=== PATIENT | male | born 1985 | race African-American/Black ===

== ENCOUNTER 2021-06-09 10:30 | Inpatient (IN) | payer MEDICAID ==
[~2021-06-09] VITALS: Ht 182.9 cm; Wt 93.6 kg
[2021-06-09] MEDS ORDERED: LEVETIRACETAM 1000MG PREMIX 100 ML IV ONE ×2 (11:00→12:45)
[2021-06-09] MEDS ORDERED: PROPOFOL 10MG/ML 100ML 100 ML IV ONE (11:30)
[2021-06-09] MEDS ORDERED: LORAZEPAM 2MG/ML CPJ IV ONE (11:30)
[2021-06-09] MEDS ORDERED: PROPOFOL 200MG/20ML VIAL IV ONE (11:30)
[2021-06-09] MEDS ORDERED: FENTANYL CITRATE/PF 50MCG/ML 2ML VIAL IV ONE (11:30)
[2021-06-09] MEDS ORDERED: NOREPINEPHRINE 8MG/250ML PMX 250 ML IV STA (11:45)
[2021-06-09] MEDS ORDERED: MIDAZOLAM HCL 100 MG in DEXT 5% WATER 80 ML IV ONE (12:00)
[2021-06-09] MEDS ORDERED: MIDAZOLAM 100MG/100ML PMX 100 ML IV SCH (12:15)
[2021-06-09 12:32] LABS: CLARITY URINE CLEAR (CLEAR); COLOR URINE YELLOW (YELLOW); KETONES URINE NEGATIVE (NEGATIVE); LEUKOCYTE ESTERASE URINE NEGATIVE (NEGATIVE); NITRITE URINE NEGATIVE (NEGATIVE); OCCULT BLOOD URINE 2+ (NEGATIVE); PH URINE 5.5 (4.5-8.0); PROTEIN URINE TRACE (NEGATIVE); SPECIFIC GRAVITY URINE 1.011 (1.005-1.030); UROBILINOGEN URINE 0.2 E.U./dL (0.2-1.0)
[2021-06-09 12:45] LABS: *AMPHETAMINES SCREEN URINE NEGATIVE (NEGATIVE); *BARBITURATES SCREEN URINE NEGATIVE (NEGATIVE); *BENZODIAZEPINES SCREEN URINE PRESUMTIVE POSITIVE (NEGATIVE)
[2021-06-09 12:46] LABS: *COCAINE SCREEN URINE NEGATIVE (NEGATIVE); METHADONE URINE SCREEN NEGATIVE (NEGATIVE); OPIATES URINE SCREEN NEGATIVE (NEGATIVE); PHENCYCLIDINE URINE SCREEN NEGATIVE (NEGATIVE)
[2021-06-09 12:47] LABS: CANNABINOID URINE SCREEN PRESUMTIVE POSITIVE (NEGATIVE)
[2021-06-09 13:20] LABS: BASOPHILS % 0.2 % (0.0-2.0); EOSINOPHILS % 0.2 % (0.0-5.0); HEMATOCRIT. 45.2 % (42.0-52.0); LYMPHOCYTES % 11.9 % (20.0-50.0); MEAN CORPUSCULAR VOLUME 84.3 fL (80.0-94.0); MEAN PLATELET VOLUME 8.3 fl (7.4-10.4); MONOCYTES % 6.1 % (2.0-8.0); NEUTROPHILS % 81.6 % (40.0-76.0); PLATELET 213 x1000/uL (130-400); RED BLOOD CELL COUNT 5.37 mill/uL (4.7-6.1); RED CELL DISTRIBUTION WIDTH 13.6 % (11.6-14.6)
[2021-06-09] MEDS ORDERED: MORPHINE SULFATE 4 MG/ML CPJ (NOT FOR IM USE) IV ONE (13:45)
[2021-06-09] MEDS ORDERED: LEVETIRACETAM 500 MG in SODIUM CHLORIDE 0.9% 100 ML IV SCH (13:45)
[2021-06-09] MEDS ORDERED: MIDAZOLAM HCL 100 MG in SODIUM CHLORIDE 0.9% 80 ML IV PRN (13:45)
[2021-06-09] MEDS ORDERED: ONDANSETRON HCL 4MG/2ML INJ IV PRN (13:45)
[2021-06-09] MEDS ORDERED: ACETAMINOPHEN 325MG TABLET PO PRN (13:45)
[2021-06-09] MEDS ORDERED: PIPERACILLIN/TAZ 3.375G PREMIX 50 ML IV NR (14:00)
[2021-06-09 14:18] LABS: BG CARBOXYHEMOGLOBIN 0.3 % (0.5-1.5); BG DEOXYHEMOGLOBIN 0.5 % (0.0-5.0); BG HCO3 ACT 16.5 mmol/L (22.0-26.0); BG METHEMOGLOBIN 0.4 % (0.0-1.5); BG OXYGEN SATURATION 99.5 % (92.0-98.5); BG OXYHEMOGLOBIN 98.8 % (94.0-97.0); BG PCO2 34.7 mmHg (35.0-45.0); BG PH 7.295 (7.350-7.450); BG SAMPLE SITE RIGHT BRACHIAL; BG TOTAL HEMOGLOBIN 14.8 g/dL (12.0-18.0); BG VENT MODE VENT - AC
[2021-06-09] MEDS: PROPOFOL 10MG/ML 100ML 100 ML IV PRN ×2 (16:02→21:32)
[2021-06-09 16:07] LABS: CHLORIDE 110 mEq/L (98-107)
[2021-06-09 16:11] LABS: ETHANOL BLOOD < 10 mg/dL
[2021-06-09] MEDS: PANTOPRAZOLE SODIUM 40 MG/VIAL IV SCH (18:12)
[2021-06-09] MEDS: MIDODRINE HCL 5MG TABLET PO SCH (19:01)
[2021-06-09] MEDS: IPRATROPIUM/ALBUTEROL 0.5-3(2.5)MG/3ML NEB HHN SCH (19:49)
[2021-06-09] MEDS ORDERED: PHENYTOIN SODIUM 100MG/2ML VIAL IV SCH (20:15)
[2021-06-09] MEDS ORDERED: LEVETIRACETAM 1000MG PREMIX 100 ML IV SCH (21:00)
[2021-06-09] MEDS ORDERED: LEVETIRACETAM 500MG PREMIX 100 ML IV SCH (21:00)
[2021-06-09] MEDS ORDERED: MIDAZOLAM 100MG/100ML PMX 100 ML IV PRN (21:45)
[2021-06-09] MEDS: PIPERACILLIN/TAZOBACTAM 3.375 G in DEXTROSE 5% WATER 50 ML IV SCH (23:42)
[2021-06-10] VITALS (31 sets, daily range): BP systolic 96–153; BP diastolic 47–107
[2021-06-10] MEDS: IPRATROPIUM/ALBUTEROL 0.5-3(2.5)MG/3ML NEB HHN SCH ×4 (00:45→20:17)
[2021-06-10] MEDS: PROPOFOL 10MG/ML 100ML 100 ML IV PRN (05:23)
[2021-06-10] MEDS: PIPERACILLIN/TAZOBACTAM 3.375 G in DEXTROSE 5% WATER 50 ML IV SCH ×3 (06:50→22:46)
[2021-06-10] MEDS: MIDODRINE HCL 5MG TABLET PO SCH ×3 (09:00→17:00)
[2021-06-10 09:52] LABS: BG BASE EXCESS -0.9 mmol/L (-2.0-2.0); BG DEOXYHEMOGLOBIN 0.8 % (0.0-5.0); BG FRACTION INSPIRED OXYGEN 40; BG HCO3 ACT 20.6 mmol/L (22.0-26.0); BG METHEMOGLOBIN 0.2 % (0.0-1.5); BG OXYGEN SATURATION 99.2 % (92.0-98.5); BG PCO2 26.8 mmHg (35.0-45.0); BG PH 7.504 (7.350-7.450); BG PO2 171.3 mmHg (75.0-100.0); BG SAMPLE SITE RIGHT RADIAL; BG TOTAL HEMOGLOBIN 15.3 g/dL (12.0-18.0); BG VENT MODE VENT - AC
[2021-06-10 10:20] LABS: BASOPHILS % 0.3 % (0.0-2.0); EOSINOPHILS % 0.1 % (0.0-5.0); HEMATOCRIT. 45.2 % (42.0-52.0); HEMOGLOBIN. 15.7 g/dL (14.0-18.0); LYMPHOCYTES % 14.1 % (20.0-50.0); MEAN CORPUSCULAR VOLUME 83.5 fL (80.0-94.0); MEAN PLATELET VOLUME 8.7 fl (7.4-10.4); MONOCYTES % 7.6 % (2.0-8.0); NEUTROPHILS % 77.9 % (40.0-76.0); PLATELET 221 x1000/uL (130-400); RED BLOOD CELL COUNT 5.41 mill/uL (4.7-6.1); RED CELL DISTRIBUTION WIDTH 13.6 % (11.6-14.6)
[2021-06-10 10:34] LABS: CHLORIDE 107 mEq/L (98-107)
[2021-06-10] MEDS: PANTOPRAZOLE SODIUM 40 MG/VIAL IV SCH (10:38)
[2021-06-10] MEDS: LEVETIRACETAM 1,000 MG in SODIUM CHLORIDE 0.9% 100 ML IV SCH ×2 (10:39→21:05)
[2021-06-10] MEDS ORDERED: POTASSIUM CHLORIDE 20MEQ/PACKET PO SCH (12:30)
[2021-06-10] MEDS: LORAZEPAM 2MG/ML CPJ IV PRN (17:22)
[2021-06-10] MEDS ORDERED: HALOPERIDOL LACTATE 5MG/ML VIAL IM PRN (18:45)
[2021-06-10] MEDS: PHENYTOIN SODIUM 100MG/2ML VIAL IV SCH (21:05)
[2021-06-11] VITALS (22 sets, daily range): BP systolic 113–158; BP diastolic 50–97
[2021-06-11] MEDS: LORAZEPAM 2MG/ML CPJ IV PRN (00:30)
[2021-06-11] MEDS: IPRATROPIUM/ALBUTEROL 0.5-3(2.5)MG/3ML NEB HHN SCH ×3 (02:07→14:05)
[2021-06-11] MEDS: PIPERACILLIN/TAZOBACTAM 3.375 G in DEXTROSE 5% WATER 50 ML IV SCH ×2 (05:27→13:32)
[2021-06-11] MEDS: PHENYTOIN SODIUM 100MG/2ML VIAL IV SCH ×2 (05:28→13:32)
[2021-06-11 06:12] LABS: BASOPHILS % 0.3 % (0.0-2.0); EOSINOPHILS % 0.3 % (0.0-5.0); HEMATOCRIT. 42.8 % (42.0-52.0); HEMOGLOBIN. 14.3 g/dL (14.0-18.0); LYMPHOCYTES % 14.3 % (20.0-50.0); MEAN CORPUSCULAR HEMOGLOBIN 27.8 pg (28.0-32.0); MEAN CORPUSCULAR VOLUME 82.9 fL (80.0-94.0); MEAN PLATELET VOLUME 8.4 fl (7.4-10.4); MONOCYTES % 9.4 % (2.0-8.0); NEUTROPHILS % 75.7 % (40.0-76.0); PLATELET 198 x1000/uL (130-400); RED BLOOD CELL COUNT 5.17 mill/uL (4.7-6.1); RED CELL DISTRIBUTION WIDTH 13.7 % (11.6-14.6)
[2021-06-11 06:50] LABS: CHLORIDE 108 mEq/L (98-107)
[2021-06-11] MEDS: PANTOPRAZOLE SODIUM 40 MG/VIAL IV SCH (08:10)
[2021-06-11] MEDS: MIDODRINE HCL 5MG TABLET PO SCH ×2 (09:00→13:31)
[2021-06-11] MEDS: LEVETIRACETAM 1,000 MG in SODIUM CHLORIDE 0.9% 100 ML IV SCH (11:16)
[2021-06-11] MEDS ORDERED: LEVE750T4 MT (14:28)
[2021-06-12] MEDS ORDERED: FAMOTIDINE 20MG/2ML VIAL IV SCH (09:00)
== END 2021-06-11 17:40 | disposition home or self-care (01) | DRG 53 ==
LOC: ER 10:42 → MICUSO 13:10 → UNDOADMIN 06-10 06:14 → MICUSO 06-10 09:15 → CVICU 06-10 09:15 → 5EST 06-11 08:52 → UNDODISIN 06-11 17:40
PROVIDERS: ADMIT Internal Medicine Pulmonary Disease; ATTEND Internal Medicine Pulmonary Disease
PROC: 5A1945Z Respiratory Ventilation, 24-96 Consecutive Hours (ICD-10-PCS; principal; 2021-06-10)
PROC: 0BH17EZ Insertion of Endotracheal Airway into Trachea, Via Natural or Artificial Opening (ICD-10-PCS; 2021-06-10)
PROC: 4A10X4Z Monitoring of Central Nervous Electrical Activity, External Approach (ICD-10-PCS; 2021-06-11)
DX: G40.401 Other generalized epilepsy and epileptic syndromes, not intractable, with status epilepticus (principal); J96.00 Acute respiratory failure, unspecified whether with hypoxia or hypercapnia; G93.89 Other specified disorders of brain; D72.829 Elevated white blood cell count, unspecified; F12.90 Cannabis use, unspecified, uncomplicated; Z91.14 Patient's other noncompliance with medication regimen
CPT/HCPCS: 36415; 36600; 71045; 80048; 80053; 80305; 80320; 81003; 82375; 82805; 82962; 85025; 87070; 92610; 93005; 94002; 94003; 94640; 95816; 97162; 97166; 97535; 99291; C9113; J1165; J1630; J1953; J2060; J2250; J2270; J2543; J2704; J7050; J7060; G0480

== ENCOUNTER 2021-07-06 16:52 | Emergency (ER) | payer MEDICAID ==
[~2021-07-06] VITALS: Ht 177.8 cm; Wt 77.0 kg
[~2021-07-06 16:52] MED LIST: LEVE750T4 MT
[2021-07-06 17:15] VITALS: BP 96/64
[2021-07-06] MEDS ORDERED: LEVETIRACETAM 500MG TABLET PO ONE (17:30)
[2021-07-06] MEDS ORDERED: LORAZEPAM 0.5MG TABLET PO ONE (17:45)
[2021-07-06] MEDS ORDERED: DIPHENHYDRAMINE 50MG/ML VIAL IM ONE (17:45)
== END 2021-07-06 19:11 | disposition home or self-care (01) ==
LOC: ER 16:52
DX: G40.909 Epilepsy, unspecified, not intractable, without status epilepticus (principal); G24.01 Drug induced subacute dyskinesia; Z87.820 Personal history of traumatic brain injury
CPT/HCPCS: 99283

== ENCOUNTER 2023-05-16 20:05 | Inpatient (IN) | payer MEDICAID, OTHER ==
[~2023-05-16] VITALS: Ht 177.8 cm; Wt 93.4 kg
[2023-05-16] MEDS ORDERED: LEVETIRACETAM 500MG PREMIX 100 ML IV ONE ×2 (20:30)
[2023-05-16] MEDS ORDERED: LORAZEPAM 2MG/ML CPJ IV PRN (20:45)
[2023-05-16] MEDS ORDERED: SODIUM CHLORIDE 0.9% 1,000 ML IV ONE ×2 (20:45→22:45)
[2023-05-16 21:11] LABS: BG BASE EXCESS -23.7 mmol/L (-2.0-2.0); BG CARBOXYHEMOGLOBIN 0.1 % (0.5-1.5); BG DEOXYHEMOGLOBIN 0.7 % (0.0-5.0); BG FRACTION INSPIRED OXYGEN 100; BG METHEMOGLOBIN 0.7 % (0.0-1.5); BG OXYGEN SATURATION 99.3 % (92.0-98.5); BG OXYHEMOGLOBIN 98.5 % (94.0-97.0); BG PCO2 45.5 mmHg (35.0-45.0); BG PH 6.916 (7.350-7.450); BG SAMPLE SITE LEFT RADIAL; BG TOTAL HEMOGLOBIN 15.9 g/dL (12.0-18.0); BG VENT MODE MASK - NRB
[2023-05-16 21:27] LABS: HEMATOCRIT. 47.8 % (42.0-52.0); MEAN CORPUSCULAR HEMOGLOBIN 27.6 pg (28.0-32.0); MEAN CORPUSCULAR HGB CONC 31.5 g/dL (31.0-37.0); MEAN CORPUSCULAR VOLUME 87.8 fL (80.0-94.0); MEAN PLATELET VOLUME 9.2 fl (7.4-10.4); PLATELET 314 x1000/uL (130-400); RED BLOOD CELL COUNT 5.44 mill/uL (4.7-6.1); RED CELL DISTRIBUTION WIDTH 14.5 % (11.6-14.6); WHITE BLOOD COUNT 15.5 x1000/uL (4.5-11.0)
[2023-05-16 21:31] LABS: DIFFERENTIAL COMMENT 1
[2023-05-16 21:41] LABS: *AMPHETAMINES SCREEN URINE NEGATIVE (NEGATIVE); *BARBITURATES SCREEN URINE NEGATIVE (NEGATIVE); *BENZODIAZEPINES SCREEN URINE PRESUMPTIVE POSITIVE (NEGATIVE); *COCAINE SCREEN URINE NEGATIVE (NEGATIVE); CANNABINOID URINE SCREEN PRESUMPTIVE POSITIVE (NEGATIVE); ECSTASY MDMA SCREEN URINE NEGATIVE (NEGATIVE); METHADONE URINE SCREEN Neg (NEGATIVE); OPIATES URINE SCREEN NEGATIVE (NEGATIVE); PHENCYCLIDINE URINE SCREEN NEGATIVE (NEGATIVE)
[2023-05-16 21:44] LABS: CLARITY URINE CLEAR (CLEAR); COLOR URINE YELLOW (YELLOW); PLATELET ESTIMATE NORMAL
[2023-05-16 21:45] LABS: GLUCOSE URINE NEGATIVE (NEGATIVE); KETONES URINE NEGATIVE (NEGATIVE); LEUKOCYTE ESTERASE URINE NEGATIVE (NEGATIVE); NITRITE URINE NEGATIVE (NEGATIVE); OCCULT BLOOD URINE 3+ (NEGATIVE); PROTEIN URINE 2+ (NEGATIVE); SPECIFIC GRAVITY URINE >=1.030 (1.005-1.030); UROBILINOGEN URINE 0.2 E.U./dL (0.2-1.0)
[2023-05-16 21:47] LABS: ALANINE AMINOTRANSFERASE 27 IU/L (10-49); ALBUMIN 5.1 g/dL (3.2-4.8); ASPARTATE AMINOTRANSFERASE 32 IU/L (<34); BILIRUBIN TOTAL 0.3 mg/dL (0.1-1.0); CALCIUM 10.3 mg/dL (8.7-10.4); CHLORIDE 101 mEq/L (98-107); CREATINE KINASE 568 IU/L (46-171); CREATININE 1.8 mg/dL (0.6-1.3); GLUCOSE 143 mg/dL (70-105); POTASSIUM 4.2 mEq/L (3.5-5.1); PROTEIN TOTAL 8.8 g/dL (6.0-8.3); SODIUM 140 mEq/L (136-145); UREA NITROGEN BLOOD 12 mg/dL (9-23)
[2023-05-16 21:49] LABS: BACTERIA URINE 1+; RBC URINE 15-25 /hpf (0-2); SQUAMOUS EPITHELIAL CELL URINE FEW /lpf (RARE/1+); WBC URINE 0-2 /hpf (0-2)
[2023-05-16] MEDS ORDERED: LORAZEPAM 4MG/ML VIAL IV NR (22:00)
[2023-05-16 22:30] LABS: ETHANOL BLOOD < 10 mg/dL (<10)
[2023-05-16 22:33] LABS: CARBON DIOXIDE < 10 mEq/L (21-32)
[2023-05-17] VITALS (8 sets, daily range): BP systolic 112–133; BP diastolic 56–73; PULSE 48–96; RESP 14–20; TEMP 95.5–101.4
[2023-05-17] MEDS ORDERED: PIPERACILLIN/TAZ 3.375G PREMIX 50 ML IV SCH (02:15)
[2023-05-17] MEDS: DEXT 5%/0.45% NACL KCL 20MEQ/L 1,000 ML IV SCH ×3 (02:15→16:54)
[2023-05-17] MEDS ORDERED: ACETAMINOPHEN 650MG SUPP PR PRN ×2 (02:15→17:00)
[2023-05-17] MEDS ORDERED: LORAZEPAM 4MG/ML VIAL IV PRN ×2 (02:15→13:15)
[2023-05-17 04:04] LABS: ALANINE AMINOTRANSFERASE 26 IU/L (10-49); ALBUMIN 4.2 g/dL (3.2-4.8); ASPARTATE AMINOTRANSFERASE 46 IU/L (<34); BILIRUBIN TOTAL 0.3 mg/dL (0.1-1.0); CALCIUM 9.2 mg/dL (8.7-10.4); CARBON DIOXIDE 24 mEq/L (21-32); CHLORIDE 107 mEq/L (98-107); CREATININE 1.9 mg/dL (0.6-1.3); GLUCOSE 110 mg/dL (70-105); PROTEIN TOTAL 6.7 g/dL (6.0-8.3); SODIUM 140 mEq/L (136-145); UREA NITROGEN BLOOD 10 mg/dL (9-23)
[2023-05-17 04:21] LABS: HEMATOCRIT. 40.4 % (42.0-52.0); HEMOGLOBIN. 13.3 g/dL (14.0-18.0); MEAN CORPUSCULAR HEMOGLOBIN 27.6 pg (28.0-32.0); MEAN CORPUSCULAR HGB CONC 32.9 g/dL (31.0-37.0); MEAN PLATELET VOLUME 8.8 fl (7.4-10.4); PLATELET 209 x1000/uL (130-400); RED BLOOD CELL COUNT 4.81 mill/uL (4.7-6.1); RED CELL DISTRIBUTION WIDTH 13.9 % (11.6-14.6); WHITE BLOOD COUNT 13.8 x1000/uL (4.5-11.0)
[2023-05-17 04:54] LABS: DIFFERENTIAL COMMENT 1
[2023-05-17] MEDS: PIPERACILLIN/TAZOBACTAM 3.375G in DEXT 5% WATER 50ML IV SCH ×3 (05:17→22:19)
[2023-05-17] MEDS: ONDANSETRON HCL 4MG/2ML INJ IV PRN (05:37)
[2023-05-17] MEDS: PANTOPRAZOLE SODIUM 40 MG/VIAL IV SCH (08:28)
[2023-05-17] MEDS ORDERED: LEVETIRACETAM 500MG PREMIX 100 ML IV SCH ×2 (09:00→21:00)
[2023-05-17] MEDS: ENOXAPARIN 30MG/0.3ML SYR SUBCUT SCH (10:09)
[2023-05-17] MEDS ORDERED: PHENYTOIN SODIUM 100MG/2ML VIAL IV ONE (14:00)
[2023-05-17] MEDS ORDERED: PHENYTOIN SODIUM 500MG in SODIUM CHLORIDE 0.9% 50ML IV NR (14:30)
[2023-05-17 18:22] LABS: PLATELET ESTIMATE NORMAL
[2023-05-17] MEDS: PHENYTOIN SODIUM 100MG/2ML VIAL IV SCH (22:20)
[2023-05-18] VITALS (22 sets, daily range): BP systolic 102–158; BP diastolic 63–92; PULSE 41–71; RESP 13–22; TEMP 98.1–100.2
[2023-05-18] MEDS: DEXT 5%/0.45% NACL KCL 20MEQ/L 1,000 ML IV SCH (02:05)
[2023-05-18] MEDS: LORAZEPAM 4MG/ML VIAL IV PRN ×4 (02:11→20:55)
[2023-05-18 06:09] LABS: CALCIUM 8.6 mg/dL (8.7-10.4); POTASSIUM 4.4 mEq/L (3.5-5.1)
[2023-05-18 06:18] LABS: AMMONIA 49 uMol/L (<32)
[2023-05-18 06:29] LABS: CREATININE 4.6 mg/dL (0.6-1.3)
[2023-05-18] MEDS: PIPERACILLIN/TAZOBACTAM 3.375G in DEXT 5% WATER 50ML IV SCH ×2 (06:40→21:58)
[2023-05-18] MEDS: PHENYTOIN SODIUM 100MG/2ML VIAL IV SCH ×3 (06:46→21:58)
[2023-05-18 08:01] LABS: HEMATOCRIT 36.8 % (42.0-52.0); HEMOGLOBIN 11.9 g/dL (14.0-18.0); MEAN CORPUSCULAR HEMOGLOBIN 27.4 pg (28.0-32.0); MEAN CORPUSCULAR HGB CONC 32.3 g/dL (31.0-37.0); MEAN CORPUSCULAR VOLUME 84.7 fL (80.0-94.0); PLATELET 184 x1000/uL (130-400); RED BLOOD CELL COUNT 4.35 mill/uL (4.7-6.1); RED CELL DISTRIBUTION WIDTH 14.2 % (11.6-14.6); WHITE BLOOD COUNT 12.8 x1000/uL (4.5-11.0)
[2023-05-18] MEDS: PANTOPRAZOLE SODIUM 40 MG/VIAL IV SCH (08:28)
[2023-05-18] MEDS: ENOXAPARIN 30MG/0.3ML SYR SUBCUT SCH (08:29)
[2023-05-18] MEDS: LEVETIRACETAM 1,000 MG in SODIUM CHLORIDE 0.9% 100 ML IV SCH ×2 (09:48→21:58)
[2023-05-18 11:37] LABS: CREATINE KINASE 11034 IU/L (46-171)
[2023-05-18] MEDS: DEXT 5%/0.45% NACL 1000ML 1,000 ML IV SCH ×2 (12:22→22:41)
[2023-05-18] MEDS: ONDANSETRON HCL 4MG/2ML INJ IV PRN (20:55)
[2023-05-19] VITALS (22 sets, daily range): BP systolic 101–157; BP diastolic 72–129; PULSE 41–73; RESP 10–25; TEMP 97.6–99.7
[2023-05-19] MEDS: LORAZEPAM 4MG/ML VIAL IV PRN (02:47)
[2023-05-19] MEDS: PHENYTOIN SODIUM 100MG/2ML VIAL IV SCH ×3 (05:23→22:00)
[2023-05-19] MEDS: DEXT 5%/0.45% NACL 1000ML 1,000 ML IV SCH ×2 (06:09→12:54)
[2023-05-19 06:17] LABS: BASOPHILS % 0.5 % (0.0-2.0); EOSINOPHILS % 0.1 % (0.0-5.0); HEMATOCRIT. 36.3 % (42.0-52.0); LYMPHOCYTES % 25.2 % (20.0-50.0); MEAN CORPUSCULAR HEMOGLOBIN 27.8 pg (28.0-32.0); MEAN CORPUSCULAR HGB CONC 32.9 g/dL (31.0-37.0); MEAN CORPUSCULAR VOLUME 84.5 fL (80.0-94.0); MEAN PLATELET VOLUME 8.9 fl (7.4-10.4); MONOCYTES % 10.6 % (2.0-8.0); NEUTROPHILS % 63.6 % (40.0-76.0); PLATELET 176 x1000/uL (130-400); RED BLOOD CELL COUNT 4.29 mill/uL (4.7-6.1); WHITE BLOOD COUNT 10.3 x1000/uL (4.5-11.0)
[2023-05-19 07:05] LABS: CALCIUM 8.5 mg/dL (8.7-10.4); CARBON DIOXIDE 26 mEq/L (21-32); CHLORIDE 110 mEq/L (98-107); CREATININE 4.1 mg/dL (0.6-1.3); GLUCOSE 112 mg/dL (70-105); PHOSPHORUS 3.2 mg/dL (2.5-4.9); POTASSIUM 4.6 mEq/L (3.5-5.1); SODIUM 142 mEq/L (136-145); UREA NITROGEN BLOOD 22 mg/dL (9-23)
[2023-05-19 07:24] LABS: CREATINE KINASE 21576 IU/L (46-171)
[2023-05-19] MEDS: PIPERACILLIN/TAZOBACTAM 3.375G in DEXT 5% WATER 50ML IV SCH (08:20)
[2023-05-19] MEDS: PANTOPRAZOLE SODIUM 40 MG/VIAL IV SCH (08:20)
[2023-05-19] MEDS: ENOXAPARIN 40MG/0.4ML SYR SUBCUT SCH (08:20)
[2023-05-19] MEDS: LEVETIRACETAM 1,000 MG in SODIUM CHLORIDE 0.9% 100 ML IV SCH (10:14)
[2023-05-20] VITALS: BP 139/82; PULSE 48; RESP 20; TEMP 99
[2023-05-20] MEDS: DEXT 5%/0.45% NACL 1000ML 1,000 ML IV SCH ×3 (00:01→11:38)
[2023-05-20] MEDS: PIPERACILLIN/TAZOBACTAM 3.375G in DEXT 5% WATER 50ML IV SCH ×3 (00:02→20:51)
[2023-05-20] MEDS: LEVETIRACETAM 1,000 MG in SODIUM CHLORIDE 0.9% 100 ML IV SCH ×2 (00:02→12:41)
[2023-05-20] MEDS: LORAZEPAM 4MG/ML VIAL IV PRN ×2 (01:36→13:14)
[2023-05-20 04:00] VITALS: BP 105/79; PULSE 65; RESP 20; TEMP 98.5
[2023-05-20] MEDS: PHENYTOIN SODIUM 100MG/2ML VIAL IV SCH ×2 (05:41→15:54)
[2023-05-20 08:00] VITALS: BP 136/86; PULSE 42; RESP 21; TEMP 99.2
[2023-05-20] MEDS: PANTOPRAZOLE SODIUM 40 MG/VIAL IV SCH (11:35)
[2023-05-20] MEDS: ENOXAPARIN 40MG/0.4ML SYR SUBCUT SCH (11:37)
[2023-05-20 16:00] VITALS: BP 159/77; PULSE 48; RESP 21
[2023-05-20 17:12] LABS: BASOPHILS % 0.4 % (0.0-2.0); EOSINOPHILS % 0.2 % (0.0-5.0); HEMOGLOBIN. 12.9 g/dL (14.0-18.0); LYMPHOCYTES % 26.9 % (20.0-50.0); MEAN CORPUSCULAR HEMOGLOBIN 27.4 pg (28.0-32.0); MEAN CORPUSCULAR HGB CONC 32.3 g/dL (31.0-37.0); MEAN CORPUSCULAR VOLUME 84.9 fL (80.0-94.0); MEAN PLATELET VOLUME 9.7 fl (7.4-10.4); MONOCYTES % 10.8 % (2.0-8.0); NEUTROPHILS % 61.7 % (40.0-76.0); PLATELET 220 x1000/uL (130-400); RED BLOOD CELL COUNT 4.72 mill/uL (4.7-6.1); RED CELL DISTRIBUTION WIDTH 13.8 % (11.6-14.6); WHITE BLOOD COUNT 9.7 x1000/uL (4.5-11.0)
[2023-05-20 17:29] LABS: CALCIUM 8.9 mg/dL (8.7-10.4); CARBON DIOXIDE 24 mEq/L (21-32); CHLORIDE 111 mEq/L (98-107); GLUCOSE 88 mg/dL (70-105); PHOSPHORUS 2.7 mg/dL (2.5-4.9); POTASSIUM 4.2 mEq/L (3.5-5.1); SODIUM 145 mEq/L (136-145); UREA NITROGEN BLOOD 23 mg/dL (9-23)
[2023-05-20 17:32] LABS: CREATININE 2.6 mg/dL (0.6-1.3)
[2023-05-20 20:00] VITALS: BP 133/77; PULSE 47; RESP 21; TEMP 99.1
[2023-05-20] MEDS: LEVETIRACETAM 500MG TABLET PO SCH (20:52)
[2023-05-20] MEDS ORDERED: PHENYTOIN SODIUM EXTENDED 100MG CAPSULE PO SCH (21:00)
[2023-05-21] VITALS: BP 134/75; PULSE 45; RESP 15; TEMP 98.2
[2023-05-21] MEDS: DEXT 5%/0.45% NACL 1000ML 1,000 ML IV SCH ×3 (00:04→12:53)
[2023-05-21 04:00] VITALS: BP 114/69; PULSE 47; RESP 17; TEMP 98.6
[2023-05-21 08:08] LABS: BASOPHILS % 0.5 % (0.0-2.0); EOSINOPHILS % 0.7 % (0.0-5.0); HEMATOCRIT. 35.2 % (42.0-52.0); HEMOGLOBIN. 11.9 g/dL (14.0-18.0); LYMPHOCYTES % 28.3 % (20.0-50.0); MEAN CORPUSCULAR HGB CONC 33.9 g/dL (31.0-37.0); MEAN CORPUSCULAR VOLUME 82.8 fL (80.0-94.0); MONOCYTES % 11.7 % (2.0-8.0); NEUTROPHILS % 58.8 % (40.0-76.0); PLATELET 208 x1000/uL (130-400); RED BLOOD CELL COUNT 4.25 mill/uL (4.7-6.1); RED CELL DISTRIBUTION WIDTH 13.9 % (11.6-14.6); WHITE BLOOD COUNT 8.4 x1000/uL (4.5-11.0)
[2023-05-21 08:25] LABS: ALANINE AMINOTRANSFERASE 95 IU/L (10-49); ALBUMIN 3.6 g/dL (3.2-4.8); ASPARTATE AMINOTRANSFERASE 174 IU/L (<34); BILIRUBIN TOTAL 0.6 mg/dL (0.1-1.0); CALCIUM 8.8 mg/dL (8.7-10.4); CARBON DIOXIDE 25 mEq/L (21-32); CHLORIDE 111 mEq/L (98-107); CREATININE 2.2 mg/dL (0.6-1.3); GLUCOSE 107 mg/dL (70-105); PHOSPHORUS 3.6 mg/dL (2.5-4.9); PROTEIN TOTAL 6.8 g/dL (6.0-8.3); SODIUM 144 mEq/L (136-145); UREA NITROGEN BLOOD 18 mg/dL (9-23)
[2023-05-21 08:29] LABS: CREATINE KINASE 15829 IU/L (46-171)
[2023-05-21] MEDS: PIPERACILLIN/TAZOBACTAM 3.375G in DEXT 5% WATER 50ML IV SCH (08:56)
[2023-05-21] MEDS: LEVETIRACETAM 500MG TABLET PO SCH (08:56)
[2023-05-21] MEDS: ENOXAPARIN 40MG/0.4ML SYR SUBCUT SCH (08:57)
[2023-05-21] MEDS ORDERED: FAMOTIDINE 20MG/2ML VIAL IV SCH (09:00)
[2023-05-21 12:00] VITALS: BP 141/86; PULSE 48; RESP 19; TEMP 98.7
[2023-05-21 13:48] VITALS: BP 141/86; PULSE 48; TEMP 98.7; O2SAT 97
== END 2023-05-21 16:11 | disposition home or self-care (01) | DRG 53 ==
LOC: ER 20:05 → MICUSO 23:25 → EDBEDREQTM 23:31 → 8WST 05-17 00:56 → CVICU 05-17 21:40 → 3WST 05-19 18:50
PROVIDERS: ADMIT Internal Medicine Pulmonary Disease; ATTEND Internal Medicine Pulmonary Disease
PROC: 4A10X4Z Monitoring of Central Nervous Electrical Activity, External Approach (ICD-10-PCS; principal; 2023-05-18)
DX: G40.901 Epilepsy, unspecified, not intractable, with status epilepticus (principal); N17.0 Acute kidney failure with tubular necrosis; G93.40 Encephalopathy, unspecified; E87.20 Acidosis, unspecified; M62.82 Rhabdomyolysis; D72.829 Elevated white blood cell count, unspecified; Z87.820 Personal history of traumatic brain injury; Z82.49 Family history of ischemic heart disease and other diseases of the circulatory system
CPT/HCPCS: 36415; 36600; 71045; 76770; 80048; 80053; 80185; 80305; 80320; 81003; 82140; 82375; 82550; 82805; 82962; 83605; 83735; 84100; 85025; 85027; 95816; 99285; C1893; C9113; J1165; J1650; J1953; J2060; J2405; J2543; J3490; J7030; J7050; J7060; G0480

== ENCOUNTER 2023-11-18 11:48 | Emergency (ER) | payer MEDICAID ==
[~2023-11-18] VITALS: Ht 182.9 cm; Wt 100.0 kg
[2023-11-18 11:50] VITALS: O2SAT 99
[2023-11-18] MEDS ORDERED: LORAZEPAM 2MG/ML INJ ONE (11:55)
[2023-11-18] MEDS ORDERED: LORAZEPAM 2MG/ML INJ IV ONE (12:00)
[2023-11-18 12:32] LABS: BASOPHILS % 0.8 % (0.0-2.0); CHLORIDE 102 mEq/L (98-107); DIFFERENTIAL COMMENT 0; EOSINOPHILS % 1.1 % (0.0-5.0); HEMOGLOBIN. 14.3 g/dL (14.0-18.0); LYMPHOCYTES % 55.1 % (20.0-50.0); MEAN CORPUSCULAR HEMOGLOBIN 27.7 pg (28.0-32.0); MEAN CORPUSCULAR HGB CONC 31.1 g/dL (31.0-37.0); MEAN CORPUSCULAR VOLUME 89.3 fL (80.0-94.0); MEAN PLATELET VOLUME 8.9 fl (7.4-10.4); MONOCYTES % 8.6 % (2.0-8.0); NEUTROPHILS % 34.4 % (40.0-76.0); PLATELET 333 x1000/uL (130-400); POTASSIUM 3.5 mEq/L (3.5-5.1); RED BLOOD CELL COUNT 5.16 mill/uL (4.7-6.1); RED CELL DISTRIBUTION WIDTH 15.5 % (11.6-14.6); SODIUM 142 mEq/L (136-145); WHITE BLOOD COUNT 11.8 x1000/uL (4.5-11.0)
[2023-11-18 12:33] LABS: CARBON DIOXIDE 14 mEq/L (21-32)
[2023-11-18 12:34] LABS: CALCIUM 10.3 mg/dL (8.7-10.4)
[2023-11-18 12:38] LABS: CREATININE 1.3 mg/dL (0.6-1.3); GLUCOSE 129 mg/dL (70-105)
[2023-11-18 12:39] LABS: UREA NITROGEN BLOOD 6 mg/dL (9-23)
[2023-11-18] MEDS: LORAZEPAM 2MG/ML INJ IV ONE (13:05)
[2023-11-18] MEDS: LEVETIRACETAM 500MG PREMIX 100 ML IV ONE (13:41)
[2023-11-18 15:17] VITALS: TEMP 98.1
[2023-11-18 15:31] LABS: CHLORIDE 103 mEq/L (98-107); POTASSIUM 3.7 mEq/L (3.5-5.1); SODIUM 136 mEq/L (136-145)
[2023-11-18 15:32] LABS: CALCIUM 9.5 mg/dL (8.7-10.4); CARBON DIOXIDE 27 mEq/L (21-32)
[2023-11-18 15:37] LABS: CREATININE 1.2 mg/dL (0.6-1.3); GLUCOSE 103 mg/dL (70-105); UREA NITROGEN BLOOD 5 mg/dL (9-23)
[2023-11-18 15:46] LABS: ETHANOL BLOOD < 10 mg/dL (<10)
[2023-11-18] MEDS: ONDANSETRON HCL 4MG/2ML INJ IV ONE (16:04)
[2023-11-18 16:24] VITALS: BP 109/59; PULSE 51; RESP 16
== END 2023-11-18 16:55 | disposition home or self-care (01) ==
LOC: ER 11:48
DX: G40.909 Epilepsy, unspecified, not intractable, without status epilepticus (principal)
CPT/HCPCS: 80048; 80320; 85025; 36415; 70450; 96365; 96375; 99285; 82542; J1953; J2060; J2405; Z7610; G0480

== ENCOUNTER 2024-02-09 11:03 | Inpatient (IN) | payer MEDICAID, OTHER ==
[~2024-02-09] VITALS: Ht 177.8 cm; Wt 95.7 kg
[2024-02-09 11:41] LABS: BASOPHILS % 0.7 % (0.0-2.0); HEMATOCRIT. 43.4 % (42.0-52.0); HEMOGLOBIN. 14.4 g/dL (14.0-18.0); LYMPHOCYTES % 42.3 % (20.0-50.0); MEAN CORPUSCULAR HEMOGLOBIN 27.3 pg (28.0-32.0); MEAN CORPUSCULAR HGB CONC 33.2 g/dL (31.0-37.0); MEAN CORPUSCULAR VOLUME 82.4 fL (80.0-94.0); MEAN PLATELET VOLUME 8.6 fl (7.4-10.4); PLATELET 249 x1000/uL (130-400); RED BLOOD CELL COUNT 5.26 mill/uL (4.7-6.1); RED CELL DISTRIBUTION WIDTH 14.8 % (11.6-14.6); WHITE BLOOD COUNT 7.6 x1000/uL (4.5-11.0)
[2024-02-09 11:46] LABS: CHLORIDE 104 mEq/L (98-107); POTASSIUM 3.9 mEq/L (3.5-5.1); SODIUM 135 mEq/L (136-145)
[2024-02-09 11:47] LABS: CARBON DIOXIDE 26 mEq/L (21-32)
[2024-02-09 11:48] LABS: CALCIUM 9.6 mg/dL (8.7-10.4)
[2024-02-09] MEDS: LEVETIRACETAM 1000MG PREMIX 100 ML IV ONE (11:51)
[2024-02-09 11:52] LABS: CREATININE 1.2 mg/dL (0.6-1.3); GLUCOSE 107 mg/dL (70-105); UREA NITROGEN BLOOD 9 mg/dL (9-23)
[2024-02-09 11:55] LABS: ETHANOL BLOOD < 10 mg/dL (<10)
[2024-02-09] MEDS ORDERED: LACO100T4 PO (13:42)
[2024-02-09] MEDS ORDERED: CHOL200059 PO (13:42)
[2024-02-09] MEDS ORDERED: LEVE10006 PO (13:42)
[2024-02-09] MEDS ORDERED: DOCUSATE SODIUM 100MG CAPSULE PO PRN (13:45)
[2024-02-09] MEDS ORDERED: LORAZEPAM 2MG/ML INJ IV PRN (13:45)
[2024-02-09] MEDS ORDERED: MAGNESIUM/ALUMINUM HYDROXIDE/SIMETHICONE 30ML UDC PO PRN (13:45)
[2024-02-09] MEDS ORDERED: LACOSAMIDE 100MG TABLET PO SCH (21:00)
[2024-02-09 21:06] VITALS: BP 125/78; PULSE 58; RESP 17; TEMP 36.696
[2024-02-09] MEDS: LEVETIRACETAM 500MG TABLET PO SCH (21:44)
[2024-02-09] MEDS: LACOSAMIDE 100MG TABLET PO SCH (21:45)
[2024-02-09] MEDS: ZOLPIDEM TARTRATE 5MG TABLET PO PRN (22:05)
[2024-02-09] MEDS: ACETAMINOPHEN 325MG TABLET PO PRN (22:46)
[2024-02-10] VITALS: BP 124/78; RESP 53; O2SAT 98
[2024-02-10 04:00] VITALS: BP 135/89; RESP 17; O2SAT 97
[2024-02-10 08:00] VITALS: BP 112/74; PULSE 58; RESP 19; TEMP 36.44736; O2SAT 99
[2024-02-10 12:00] VITALS: BP 116/78; PULSE 66; RESP 22; TEMP 36.6696; O2SAT 94
[2024-02-10 16:00] VITALS: BP 104/51; PULSE 65; RESP 20; TEMP 36.55848; O2SAT 95
[2024-02-10 20:10] VITALS: BP 107/65; PULSE 63; RESP 13; TEMP 36.44736; O2SAT 100
[2024-02-11 00:10] VITALS: BP 117/74; PULSE 62; RESP 16; TEMP 36.3918; O2SAT 98
[2024-02-11 04:15] VITALS: BP 112/77; PULSE 60; RESP 24; TEMP 36.28068; O2SAT 99
[2024-02-11 08:00] VITALS: BP 111/70; PULSE 52; RESP 16; TEMP 36.6696; O2SAT 98
[2024-02-11] MEDS: LIDOCAINE 5% PATCH TOP SCH (08:22)
[2024-02-11 12:00] VITALS: BP 114/77; PULSE 56; RESP 16; TEMP 37.28076; O2SAT 100
[2024-02-11 16:00] VITALS: BP 124/65; PULSE 57; RESP 16; TEMP 36.9474; TEMP 36.94740; O2SAT 99
[2024-02-11] MEDS ORDERED: CELE50CA MT (16:40)
[2024-02-11 16:43] VITALS: BP 124/65; PULSE 57; TEMP 98.5; O2SAT 99
== END 2024-02-11 17:07 | disposition home or self-care (01) | DRG 53 ==
LOC: ER 11:03 → 5WST 12:37 → EDBEDREQ 12:39 → EDBEDREQTM 12:39 → 3WST 21:03
PROVIDERS: ADMIT Internal Medicine Pulmonary Disease; ATTEND Internal Medicine Pulmonary Disease
DX: G40.802 Other epilepsy, not intractable, without status epilepticus (principal); G93.89 Other specified disorders of brain; M54.50 Low back pain, unspecified; Z87.820 Personal history of traumatic brain injury
CPT/HCPCS: 36415; 72131; 80048; 80320; 80339; 82542; 85025; 95816; 97161; 99285; J1953; G0480